=== PATIENT | male | born 1995 | race Hispanic/Latino ===

== ENCOUNTER 2025-05-05 00:53 | Emergency (ER) | payer OTHER ==
[~2025-05-05] VITALS: Ht 177.8 cm; Wt 116.1 kg
[2025-05-05 03:01] LABS: IMMATURE GRANULOCYTE ABSOLUTE 0.09 K/uL (0-1); NUCLEATED RED BLOOD CELLS 0.0 % (0.0-0.19); PLATELET COUNT (AUTO) 152 K/uL (130-400); RED BLOOD CELL COUNT(AUTO) 5.12 MIL/uL (4.50-6.20); RED CELL DISTRIBUTION WIDTH 15.3 % (11.0-15.5); WHITE BLOOD COUNT (AUTO) 11.9 K/uL (4.8-10.8)
[2025-05-05 03:45] LABS: WBC MORPHOLOGY CONSISTENT W/DIFF
[2025-05-05] MEDS ORDERED: DIPH25CA85 PO (05:11)
[2025-05-05] MEDS ORDERED: CLIN-141 PO (05:11)
--- NOTE | 2025-05-05 05:12 | ERN ---
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 Few hours later he noted itching and a rash in his lower abdomen and groin areas. In addition he noted his penis was swollen as well as his prepuce and there seemed to be some purulent drainage coming out of the base of his glans. He was given an antibiotic in the shelter but he does not know the name of it only that it was a white pill. He had a similar experience two years ago with a different caustic chemical in it that time he was treated with antibiotics and antifungals. He comes in wanting a different antibiotic and and treatment for his rash. Allergies: Coded Allergies: No Known Allergies (Unverified Allergy, Unknown, 05/05/25) Past Medical History Past Medical History: No Pertinent History Past Surgical History: None Constitutional: (-) chills, (-) diaphoresis, (-) fever, (-) malaise, (-) weakness, (-) other documentation EENTM: (-) eye pain, (-) blurred vision, (-) tearing, (-) double vision, (-) ear pain, (-) ear discharge, (-) nose pain, (-) nose congestion, (-) throat pain, (-) Throat swelling, (-) mouth pain, (-) tooth pain, (-) mouth swelling, (-) other documentation Respiratory: (-) cough, (-) orthopnea, (-) short of breath, (-) stridor, (-) wheezing, (-) other documentation Cardiovascular: (-) chest pain, (-) edema, (-) palpitations, (-) syncope, (-) dyspnea on exertion, (-) other documentation Gastrointestinal/Abdominal: (-) nausea, (-) vomiting, (-) diarrhea, (-) abdominal pain, (-) abdominal distention, (-) constipation, (-) rectal bleeding, (-) dark stool/melena, (-) other documentation Genitourinary: (+) penile discharge Musculoskeletal: (-) Neck pain, (-) back pain, (-) Flank Pain, (-) joint pain, (-) joint swelling, (-) muscle pain, (-) muscle stiffness, (-) gout, (-) other documentation Skin: (-) laceration, (-) contusion, (-) abrasion, (-) abscess, (-) rash, (-) change in color, (-) change in hair, (-) change in nails, (-) diaphoresis, (-) dryness, (-) other documentation Physical Exam Respiratory: (+) chest non-tender, (+) lungs clear, (+) well ventilated Respiratory Comment No signs of wheezing Genital Comment Patient has been circumcised. The penis is slightly swollen and there is some mild purulent drainage coming around the base of the glans. There is no phimosis. I have observe the patient for 4 hours and there was no change in his exam and no change in the rash. Skin Comment Patient has a flat rash that looks like a drug reaction. There was no signs of infection there is no blistering. Results Laboratory and Microbiology Lab and Micro Result Laboratory Tests Test 05/05/25 01:17 White Blood Count 11.9 K/uL (4.8-10.8) H Red Blood Count 5.12 MIL/uL (4.50-6.20) Hemoglobin 15.2 g/dL (14.0-18.0) Hematocrit 44.1 % (42-54) Mean Corpuscular Volume 86.1 fL (79-99) Mean Corpuscular Hemoglobin 29.7 pg (27.0-33.0) Mean Corpuscular Hemoglobin Concent 34.5 g/dL (32.0-36.0) Red Cell Distribution Width 15.3 % (11.0-15.5) Platelet Count 152 K/uL (130-400) Mean Platelet Volume 12.5 fL (7.5-10.5) H Immature Granulocyte % (Auto) 0.8 % (0-1) Neutrophils (%) (Auto) 79.4 % (40.0-77.0) H Lymphocytes (%) (Auto) 6.0 % (21.0-51.0) L Monocytes (%) (Auto) 10.4 % (3.0-13.0) Eosinophils (%) (Auto) 3.1 % (0.0-8.0) Basophils (%) (Auto) 0.3 % (0.0-5.0) Neutrophils # (Auto) 9.4 K/uL (1.8-7.7) H Lymphocytes # (Auto) 0.7 K/uL (1.0-4.8) L Monocytes # (Auto) 1.2 K/uL (0.1-1.0) H Eosinophils # (Auto) 0.37 K/uL (0.00-0.70) Basophils # (Auto) 0.03 K/uL (0.00-0.20) Absolute Immature Granulocyte (auto 0.09 K/uL (0-1) Nucleated Red Blood Cells 0.0 % (0.0-0.19) White Cell Morphology Comment CONSISTENT W/DIFF MDM The patient's rash maybe secondary to the single dose of the antibiotic he took or it could be from a chemical reaction from the dishwashing fluids in the kitchen. The patient's penis looks like it has had a chemical reaction as well. I will give the patient a short course of antibiotics just to be safe. Also some Benadryl for his rash. ED Course Orders Procedure Category Date Status Time Cbc With Differential LAB 05/05/25 Complete 02:48 Vital Signs Date Time Temp Pulse Resp B/P (MAP) Pulse Ox O2 Delivery O2 Flow Rate FiO2 05/05/25 03:30 98.4 105 14 114/73 98 Room Air* 0 21 05/05/25 02:30 98.4 108 18 118/80 98 Room Air* 0 21 05/05/25 01:20 98.4 102 19 132/89 98 Room Air* 0 21 05/05/25 00:57 98.1 96 16 146/78 99 Room Air 0 DX & DISP Disposition: Discharge Departure Impression: Primary Impression: Penis injury Additional Impression: Drug rash Condition: Stable Scripts Diphenhydramine HCl (Benadryl) 25 Mg Capsule 2 CAP PO HS for 5 Days, #10 CAP 0 Refills Prov: YEYO ROJAS MD 05/05/25 Clindamycin HCl (Clindamycin HCl) 300 Mg Capsule 1 CAP PO QID for 10 Days, #40 CAP 0 Refills Prov: YEYO ROJAS MD 05/05/25 Additional Instructions: I think you have an allergic reaction and a chemical injury to your penis. I have given you a prescription for Benadryl and also for an antibiotic. You should be off work and off duty in the kitchen for at least the next three or four days to give this injury time to heal. Please see the shelter doctor if things do not improve in the next week. Referrals: NONE (PCP) YEYO ROJAS MD May 05, 2025 05:12
[2025-05-05 05:44] VITALS: BP 118/83; PULSE 98; RESP 14; TEMP 98.4; O2SAT 97
--- NOTE | 2025-05-05 05:46 | NUR ---
[facility] AT BEDSIDE, TRANSPORT ETA 2 HRS
--- NOTE | 2025-05-05 07:44 | NUR ---
0730 PT WALKED OUT BY [facility] FOR [facility] HALF-WAY/ PT HAS NO IV AT THIS TIME, ALL DOCUMENTATION GIVEN. PT STABLE NO DISTRESS, NO C/O PAIN NOW.
== END 2025-05-05 07:45 | disposition home or self-care (01) ==
LOC: EEVIPCON 00:53 → EDH 00:53
DX: S39.94XA Unspecified injury of external genitals, initial encounter (principal); L27.0 Generalized skin eruption due to drugs and medicaments taken internally; S39.848A Other specified injuries of external genitals, initial encounter; X58.XXXA Exposure to other specified factors, initial encounter; Y93.89 Activity, other specified; Y92.89 Other specified places as the place of occurrence of the external cause; Y99.8 Other external cause status
CPT/HCPCS: 99285; 85025; 36415; Q0163